=== PATIENT | female | born 1965 | race Caucasian/White ===

== ENCOUNTER 2017-03-04 15:00 | Inpatient (IN) | payer BC ==
[~2017-03-04] VITALS: Ht 165.1 cm; Wt 77.3 kg
--- NOTE | ~2017-03-04 | DS ---
PATIENT'S NAME: TERESA AVENDANO [facility] AGE: 51 Y [address] ROOM: [address] [address] LOCATION: GOBS ADMIT DATE: 03/21/2017 Discharge Summary DISCHARGE DATE: 03/23/2017 FAMILY PHYSICIAN: Ed Adan MD ATTENDING PHYSICIAN: Mariana Lopez FINAL DIAGNOSES: 1. Uterine leiomyoma. 2. Ovarian cyst. PROCEDURES PERFORMED: On 03/21/2017, BRANDIE-BSO under general anesthesia. REASON FOR HOSPITALIZATION: Teresa Avendano is a 51-year-old female with postmenopausal bleeding which prompted an ultrasound. That ultrasound showed a 5-cm leiomyoma and a left-sided ovarian cyst that has been persistent over the last several months. She elected to undergo an exploratory laparotomy with BRANDIE-BSO. Please see H and P for specifics regarding physical examination. LABORATORY STUDIES: The patient's discharge hemoglobin and hematocrit were respectively. Her pathology report showed proliferative phase endometrium, adenomyosis, leiomyoma. Bilateral fallopian tubes were normal. Both ovaries showed serous cystadenomas. Pelvic cell washings were normal, negative for malignancy. HOSPITAL COURSE: The patient was admitted to [facility] on 03/21/2017 whereupon she was taken to the operating room. She would undergo an exploratory laparotomy with a BRANDIE-BSO under general anesthesia. She had a 100 mL intraoperative blood loss. She had an unremarkable postoperative course. Pain was initially managed with a low morphine REGULATION SUPERVISOR, later changed over to oral pain medications consisting of Motrin and Tylenol No 3. Quach was discontinued on postoperative day #1 without incident. Initially, kept n.p.o. and quickly advanced to clear liquid and regular diet flow and at 5 minutes. On 03/22/2017 (postoperative day #1), the patient was having normal urine and bowel function, got good pain control, and subsequently discharged in good condition. DISCHARGE INSTRUCTIONS: Please see instruction sheet for specifics. The patient is to return in 2 weeks for postoperative check. She is given a prescription for Motrin and Tylenol No. 3. MARIANA LOPEZ MD PATIENT'S NAME: TERESA AVENDANO [facility] AGE: 51 Y [address] ROOM: [place] [address] LOCATION: GOBS ADMIT DATE: 03/21/2017 Discharge Summary DISCHARGE DATE: 03/23/2017 FAMILY PHYSICIAN: Ed Adan MD ATTENDING PHYSICIAN: Mariana Lopez/brandonl /[id number] d: 03/31/17 0033 t: 04/06/17 1843, DISCHARGE SUMMARY
--- NOTE | ~2017-03-04 | OR ---
PATIENT'S NAME: TERESA AVENDANO [facility] AGE: 51 Y [address] ROOM: [place] [address] LOCATION: [facility] ADMIT DATE: 03/21/2017 OR/Procedure Report DISCHARGE DATE: FAMILY PHYSICIAN: Ed Adan MD ATTENDING PHYSICIAN: Zoltan Lopez SURGEON: Zoltan Lopez MD PUBLIC SCHOOL TEACHER: Bairon Etienne M.D. Dr. Etienne's assistance was required due to the complexity of the case as well as in compliance with [facility] guidelines. DATE OF PROCEDURE: 03/21/2017 PREOPERATIVE DIAGNOSES: Uterine fibroid and left ovarian cyst. POSTOPERATIVE DIAGNOSES: Uterine fibroid and left ovarian cyst. PROCEDURE PERFORMED: Total abdominal hysterectomy with bilateral salpingo- oophorectomy. ANESTHESIA: General endotracheal anesthesia. ESTIMATED BLOOD LOSS: 100 mL. CLINICAL INDICATION: Teresa Avendano is a 51-year-old female with postmenopausal bleeding, which prompted an ultrasound, which shows a 5 cm leiomyoma, also shows a left ovarian cyst that is persisting over the last several months. Recommended she undergo an exploratory laparotomy with the hysterectomy for a treatment of mostly the ovarian cyst and the postmenopausal bleeding secondary to leiomyoma. FINDINGS: Posterior uterine leiomyoma. The uterus and the myoma are large enough to fill the entire pelvic cavity. The ovarian cyst on the left approximately 5 cm, was adherent to the pelvic sidewall. The cyst was ruptured during removal and the fluid was clear and the cyst wall was smooth. Right tube and ovary appeared normal. TECHNICAL PROCEDURES: The patient was taken to the operating room, given general endotracheal anesthesia with good results, placed in a supine position, prepped and draped in the usual fashion. A Pfannenstiel skin incision was made with a scalpel. Subcutaneous tissue was dissected sharply. A fascial incision was performed sharply. Linea alba dissected free of the rectus muscles using a combination of sharp and blunt dissection. Rectus muscles split sharply in the midline. Peritoneum incised sharply in the midline. At this point in time, [place] self-retaining retractor was inserted in the abdomen. The laparotomy sponge was used to remove the bowels from the operative field. During the process of removing the left ovary, it was PATIENT'S NAME: CHELA AVENDANOALA Raúl [facility] AGE: 51 Y [address] ROOM: [address] [address] LOCATION: [facility] ADMIT DATE: 03/21/2017 OR/Procedure Report DISCHARGE DATE: FAMILY PHYSICIAN: Ed Adan MD ATTENDING PHYSICIAN: Zoltan Lopez discovered that the ovary was adherent to the pelvic sidewall. During manipulation to try and retrieve the ovary, the cyst would rupture. Fluid from the cyst was retrieved and sent for cytology. The mesosalpinx was released bilaterally using the LigaSure. The round ligaments were released bilaterally using the LigaSure. The left adnexa was released with the LigaSure and removed from the operative field. The peritoneum across the anterior surface of the uterus was incised with cautery. The bladder flap created using blunt dissection. Broad ligament and pedicles were created bilaterally using the LigaSure. Again, the bladder flap was extended using the blunt dissection. The cardinal pedicles were created by laterally using the LigaSure. The uterosacral pedicles were created by placing a straight Orquidea-Barber clamps releasing with the LigaSure and secured it using a Zackary stitches of 0 Vicryl suture. We then incised the vaginal cuff anteriorly and the incision was carried out in a circumferential fashion using Romaine scissors. The lateral vaginal angles were secured using a figure-of- eight interrupted stitch of 0 Vicryl suture. Vaginal cuff was closed with a running continually locking stitch of 0 Vicryl suture. Good hemostasis was obtained. The pelvic peritoneum was reapproximated using a running continuous stitch of 0 Vicryl suture. Abdomen was copiously irrigated. The laparotomy sponges and Jarett self-retaining retractor were retrieved from the abdomen. The abdominal peritoneum was closed with a running continuous stitch of 2-0 Vicryl suture. Fascial incision was closed with 2 running continuous stitches of 0 Vicryl suture tied in the midline. Subcutaneous tissue reapproximated using a running continuous subcuticular stitch of 4-0 Vicryl suture. Sponge, needle, and instrument counts were correct. The patient tolerated the procedure well and was taken to the recovery room in good condition. MD STIVEN TRIVEDI[facility] [place] /[id number] d: 03/21/17 2154 t: 03/30/17 1830, OPERATIVE SUMMARY
[2017-03-04] MEDS ORDERED: RESTASIS 0.05%1 VIAL OPHTH (16:23)
[2017-03-04] MEDS ORDERED: VITAMIN C1000 MG PO (16:24)
[2017-03-04] MEDS ORDERED: CALCIUM + VITA1 EACH PO ×2 (16:25→16:26)
[2017-03-04] MEDS ORDERED: VITAMIN D35000 UNI1 PO (16:26)
[2017-03-04] MEDS ORDERED: B COMPLETE1 EACH PO (16:26)
[2017-03-04] MEDS ORDERED: OMEGA 3 FISH O1 EACH PO (16:27)
[2017-03-04] MEDS ORDERED: ADRENAL SUPPORT PO (16:28)
[2017-03-04] MEDS ORDERED: ADVIL200 MG PO (16:29)
[2017-03-04] MEDS ORDERED: VALERIAN ROOT100 MG PO (16:30)
[2017-03-04] MEDS ORDERED: AFRIN) (GENASAL15 ML NOSE (16:31)
[2017-03-21 10:48] LABS: BASOPHIL % 0.7 %; EOSINOPHIL % 0.7 %; HEMOGLOBIN 14.2 g/dL (10.0-15.0); IMMATURE GRANULOCYTE % 0.2 %; LYMPHOCYTE # 1.1 K/uL (0.8-4.0); LYMPHOCYTE % 25.9 %; MCH 32.3 pg (27.0-34.0); MCHC 34.6 gm/dL (32.0-36.5); MCV 93.4 fl (83.0-98.0); MONOCYTE # 0.5 K/uL (0.0-1.0); MONOCYTE % 11.1 %; MPV 10.2 fl (9.4-12.4); NEUTROPHIL # (ANC) 2.7 K/uL (1.8-7.8); NEUTROPHIL % 61.4 %; NRBC % 0 /100WBC (0-0.00); PLATELET COUNT 279 K/uL (150-450); RBC 4.39 M/uL (3.50-5.50); RDW-CV 11.9 % (11.9-14.6); WBC 4.3 K/uL (4.0-11.0)
[2017-03-22 04:52] LABS: BASOPHIL % 0.1 %; HEMATOCRIT 35.8 % (33.0-46.0); HEMOGLOBIN 12.3 g/dL (10.0-15.0); IMMATURE GRANULOCYTE # 0.1 K/uL (0.0-0.3); IMMATURE GRANULOCYTE % 0.6 %; LYMPHOCYTE # 0.6 K/uL (0.8-4.0); LYMPHOCYTE % 6.5 %; MCH 32.1 pg (27.0-34.0); MCHC 34.4 gm/dL (32.0-36.5); MCV 93.5 fl (83.0-98.0); MONOCYTE # 0.9 K/uL (0.0-1.0); MONOCYTE % 8.6 %; MPV 10.2 fl (9.4-12.4); NEUTROPHIL # (ANC) 8.3 K/uL (1.8-7.8); NEUTROPHIL % 84.2 %; NRBC % 0 /100WBC (0-0.00); PLATELET COUNT 276 K/uL (150-450); RBC 3.83 M/uL (3.50-5.50); RDW-CV 12.1 % (11.9-14.6); WBC 9.9 K/uL (4.0-11.0)
--- NOTE | 2017-03-22 05:50 | NUR ---
VSS, incision covered with microfoam tape, dry and intact. Quach removed at 0445, T3 at 0430, doing well, up in chair this am, and ambulated in halls this morning.
--- NOTE | 2017-03-22 17:46 | NUR ---
vss, up ad kelsey, scant flow, has ambulated & showered, regular diet, incision approx w/steri strips & sutures. Motrin given @ 1715. ES Tylenol @ 1305. Refused all daily home meds. planning home tomorrow.
[2017-03-23] MEDS ORDERED: MOTRIN800 MG PO (11:49)
[2017-03-23] MEDS ORDERED: PERCOCET 5-3251 EACH PO (11:59)
[2017-03-23] MEDS ORDERED: CLIMARA0.05 MG TOP (12:29)
== END 2017-03-23 13:10 | disposition disaster alternative care site (69) | DRG 743 ==
LOC: GOBS 03-21 10:12 → GMSU 03-21 10:12 → GOBS 03-21 15:38
PROVIDERS: ADMIT Obstetrics & Gynecology
PROC: 0UTC0ZZ Resection of Cervix, Open Approach (ICD-10-PCS; principal; 2017-03-21)
PROC: 0UT90ZZ Resection of Uterus, Open Approach (ICD-10-PCS; principal; 2017-03-21)
PROC: 0UT20ZZ Resection of Bilateral Ovaries, Open Approach (ICD-10-PCS; principal; 2017-03-21)
DX: N83.202 Unspecified ovarian cyst, left side (principal); D25.9 Leiomyoma of uterus, unspecified
CPT/HCPCS: J0694; J1100; J1885; J2001; J2270; J2405; J3010; J7030; J7040

== ENCOUNTER → 2017-05-20 | Outpatient (CLI) | payer BC ==
[~2017-05-20] MED LIST: ADRENAL SUPPORT PO; ADVIL200 MG PO; AFRIN) (GENASAL15 ML NOSE; B COMPLETE1 EACH PO; CALCIUM + VITA1 EACH PO; CLIMARA0.05 MG TOP; MOTRIN800 MG PO; OMEGA 3 FISH O1 EACH PO; PERCOCET 5-3251 EACH PO; RESTASIS 0.05%1 VIAL OPHTH; VALERIAN ROOT100 MG PO; VITAMIN C1000 MG PO; VITAMIN D35000 UNI1 PO
== END | disposition disaster alternative care site (69) ==
LOC: GBCOE 13:30
DX: Z12.31 Encounter for screening mammogram for malignant neoplasm of breast (principal)
CPT/HCPCS: G0202